=== PATIENT | female | born 1995 | race Caucasian/White ===

== ENCOUNTER 2017-06-14 16:35 | Inpatient (IN) | payer OTHER ==
[~2017-06-14] VITALS: Ht 165.1 cm; Wt 63.0 kg
[2017-06-14] MEDS ORDERED: LORazepam 2 MG TABLET PO ONE (17:30)
[2017-06-14] MEDS ORDERED: SODIUM CHLORIDE 0.9% 1,000 ML IV ONE ×2 (17:30→20:00)
[2017-06-14 18:42] LABS: BASOPHILS # (AUTO) 0.04 K/uL (0.00-0.20); BASOPHILS % (AUTO) 0.5 % (0.0-2.0); EOSINOPHILS # (AUTO) 0.02 K/uL (0.00-0.70); EOSINOPHILS % (AUTO) 0.26 % (1.0-6.0); HEMATOCRIT 34.7 % (36-46); HEMOGLOBIN 11.9 g/dL (12.0-16.0); LYMPHOCYTES # (AUTO) 1.1 K/uL (1.0-4.8); LYMPHOCYTES % (AUTO) 13.1 % (22.0-44.0); MEAN CORPUSCULAR HEMOGLOBIN 30.2 pg (26.0-34.0); MEAN CORPUSCULAR HGB CONC 34.4 G/dL (31.0-37.0); MEAN CORPUSCULAR VOLUME 88 fL (80-100); MONOCYTES # (AUTO) 0.4 K/uL (0.1-1.0); MONOCYTES % (AUTO) 4.8 % (2.0-9.0); NEUTROPHILS % (AUTO) 81.3 % (40.0-70.0); PLATELET COUNT (AUTO) 265 K/uL (150-450); RED BLOOD CELL COUNT(AUTO) 3.96 MIL/uL (4.00-5.20); RED CELL DISTRIBUTION WIDTH 14.1 % (11.5-14.5)
[2017-06-14 18:52] LABS: ANION GAP 11 mmol/L (8-16); CALCIUM, TOTAL 8.6 mg/dL (8.8-10.5); CARBON DIOXIDE 26 mmol/L (22-29); CHLORIDE 102 mmol/L (98-107); GLOMERULAR FILTR. RATE CALC > 60 mL/min (>60); GLUCOSE,RANDOM 104 mg/dL (70-110); POTASSIUM 3.5 mmol/L (3.5-5.1); SODIUM SERUM 139 mmol/L (136-145); UREA NITROGEN, BLOOD 16 mg/dL (7-18)
[2017-06-14 19:26] LABS: ALANINE AMINOTRANSFERASE 41 U/L (12-78); ALBUMIN 3.8 g/dL (3.4-5.0); ALKALINE PHOSPHATASE 56 U/L (46-116); ASPARTATE AMINOTRANSFERASE 104 U/L (15-37); BILIRUBIN,TOTAL 0.6 mg/dL (0.1-1.0); CREATINE KINASE MB 74.2 ng/mL (0-5); TOTAL PROTEIN, SERUM 7.5 g/dL (6.4-8.2)
[2017-06-14 19:31] LABS: CKMB RELATIVE INDEX 2.1 % (0.0-4.0); CREATINE KINASE, TOTAL 3486 U/L (26-192)
[2017-06-14] MEDS ORDERED: ACETAMINOPHEN 325 MG TABLET PO PRN (22:45)
[2017-06-14] MEDS ORDERED: ONDANSETRON HCL 4 MG/2 ML VIAL IVP PRN (22:45)
[2017-06-14] MEDS ORDERED: 0.9% SODIUM CHLORIDE 10 ML SYRINGE IVP PRN (22:45)
[2017-06-15] MEDS ORDERED: OxyCODONE HCL/ACETAMINOPHEN 5-325 MG TABLET PO PRN ×2 (03:45)
[2017-06-15] MEDS ORDERED: ONDANSETRON HCL 4 MG/2 ML VIAL IVP PRN (03:45)
[2017-06-15] MEDS ORDERED: MAGNESIUM HYDROXIDE SUSPENSION 30 ML UDCUP PO PRN (03:45)
[2017-06-15] MEDS ORDERED: ACETAMINOPHEN 325 MG TABLET PO PRN (03:45)
[2017-06-15] MEDS ORDERED: 0.9% SODIUM CHLORIDE 10 ML SYRINGE IVP PRN (03:45)
[2017-06-15] MEDS ORDERED: SODIUM CHLORIDE 0.9% 1,000 ML IV SCH (03:45)
[2017-06-15 08:40] LABS: BASOPHILS # (AUTO) 0.02 K/uL (0.00-0.20); BASOPHILS % (AUTO) 0.4 % (0.0-2.0); EOSINOPHILS # (AUTO) 0.09 K/uL (0.00-0.70); EOSINOPHILS % (AUTO) 1.83 % (1.0-6.0); HEMATOCRIT 35.3 % (36-46); LYMPHOCYTES # (AUTO) 1.2 K/uL (1.0-4.8); LYMPHOCYTES % (AUTO) 24.1 % (22.0-44.0); MEAN CORPUSCULAR HEMOGLOBIN 29.7 pg (26.0-34.0); MEAN CORPUSCULAR HGB CONC 33.9 G/dL (31.0-37.0); MEAN CORPUSCULAR VOLUME 88 fL (80-100); MONOCYTES # (AUTO) 0.2 K/uL (0.1-1.0); MONOCYTES % (AUTO) 4.5 % (2.0-9.0); NEUTROPHILS # (AUTO) 3.4 K/uL (1.8-7.7); NEUTROPHILS % (AUTO) 69.2 % (40.0-70.0); PLATELET COUNT (AUTO) 228 K/uL (150-450); RED BLOOD CELL COUNT(AUTO) 4.03 MIL/uL (4.00-5.20)
[2017-06-15 08:58] LABS: ALANINE AMINOTRANSFERASE 40 U/L (12-78); ALBUMIN 3.4 g/dL (3.4-5.0); ALKALINE PHOSPHATASE 51 U/L (46-116); ANION GAP 10 mmol/L (8-16); ASPARTATE AMINOTRANSFERASE 88 U/L (15-37); BILIRUBIN,TOTAL 0.7 mg/dL (0.1-1.0); CALCIUM, TOTAL 8.4 mg/dL (8.8-10.5); CARBON DIOXIDE 25 mmol/L (22-29); CHLORIDE 104 mmol/L (98-107); CREATININE 0.67 mg/dL (0.60-1.30); GLOMERULAR FILTR. RATE CALC > 60 mL/min (>60); GLUCOSE,RANDOM 117 mg/dL (70-110); POTASSIUM 3.4 mmol/L (3.5-5.1); SODIUM SERUM 139 mmol/L (136-145); TOTAL PROTEIN, SERUM 7.1 g/dL (6.4-8.2); UREA NITROGEN, BLOOD 13 mg/dL (7-18)
[2017-06-15] MEDS ORDERED: PANTOPRAZOLE SODIUM 40 MG/VIAL IVP SCH (09:00)
[2017-06-15] MEDS ORDERED: DOCUSATE SODIUM 100 MG CAPSULE PO SCH (09:00)
[2017-06-15 11:34] VITALS: BP 115/60
== END 2017-06-15 13:00 | disposition left against medical advice (07) | DRG 816 ==
LOC: EMS 16:44 → 5N 06-15 05:24
PROVIDERS: ADMIT Internal Medicine; ATTEND Internal Medicine
PROC: 5A12012 Performance of Cardiac Output, Single, Manual (ICD-10-PCS; principal; 2017-06-15)
DX: T40.1X1A Poisoning by heroin, accidental (unintentional), initial encounter (principal); G92 Toxic encephalopathy; M62.82 Rhabdomyolysis; F11.90 Opioid use, unspecified, uncomplicated; E86.0 Dehydration; Y92.89 Other specified places as the place of occurrence of the external cause
CPT/HCPCS: 93005; 96361; 96374; 99285; C9113; G0480; J7030

== ENCOUNTER 2018-03-01 11:45 | Emergency (ER) | payer OTHER ==
[~2018-03-01] VITALS: Ht 165.1 cm; Wt 75.9 kg
[2018-03-01] MEDS ORDERED: ACETAMINOPHEN 325 MG TABLET PO ONE (12:30)
[2018-03-01 14:29] VITALS: BP 127/76
== END 2018-03-01 15:18 | disposition home or self-care (01) ==
LOC: EMS 11:48
DX: O98.813 Other maternal infectious and parasitic diseases complicating pregnancy, third trimester (principal); J06.9 Acute upper respiratory infection, unspecified; F11.90 Opioid use, unspecified, uncomplicated; Z3A.37 37 weeks gestation of pregnancy
CPT/HCPCS: 87430; 99283

== ENCOUNTER 2021-03-25 22:18 | Emergency (ER) | payer OTHER ==
[~2021-03-25] VITALS: Ht 165.1 cm; Wt 75.0 kg
[2021-03-26] MEDS ORDERED: ACETAMINOPHEN 325 MG TABLET PO PRN (00:30)
[2021-03-26] MEDS ORDERED: 0.9% SODIUM CHLORIDE 10 ML SYRINGE IVP PRN (00:30)
[2021-03-26] MEDS ORDERED: ONDANSETRON HCL 4 MG/2 ML VIAL IVP PRN (00:30)
[2021-03-26] MEDS ORDERED: ACETAMINOPHEN/CODEINE 300-15 MG TABLET PO PRN (00:45)
[2021-03-26] MEDS ORDERED: SODIUM CHLORIDE 0.9% 1,000 ML IV ONE (00:45)
[2021-03-26] MEDS ORDERED: DICYCLOMINE HCL 10 MG CAPSULE PO PRN (00:45)
[2021-03-26] MEDS ORDERED: METOCLOPRAMIDE HCL 5 MG/ML 2 ML VIAL IVP PRN (00:45)
[2021-03-26] MEDS ORDERED: LORazepam 2 MG/ML VIAL IVP PRN (00:45)
[2021-03-26] MEDS ORDERED: LOPERAMIDE HCL 2 MG CAPSULE PO PRN (00:45)
[2021-03-26 00:56] LABS: COVID AG,FIA SOURCE NASOPHARYNGEAL
[2021-03-26 01:04] LABS: BASOPHILS % (AUTO) 0.6 % (0.0-2.0); HEMATOCRIT 34.1 % (36-46); HEMOGLOBIN 11.3 g/dL (12.0-16.0); LYMPHOCYTES # (AUTO) 1.4 K/uL (1.0-4.8); LYMPHOCYTES % (AUTO) 25.4 % (22.0-44.0); MEAN CORPUSCULAR HEMOGLOBIN 26.3 pg (26.0-34.0); MEAN CORPUSCULAR HGB CONC 33.2 G/dL (31.0-37.0); MEAN CORPUSCULAR VOLUME 79 fL (80-100); MONOCYTES # (AUTO) 0.4 K/uL (0.1-1.0); MONOCYTES % (AUTO) 7.7 % (2.0-9.0); NEUTROPHILS # (AUTO) 3.6 K/uL (1.8-7.7); NEUTROPHILS % (AUTO) 64.3 % (40.0-70.0); PLATELET COUNT (AUTO) 317 K/uL (150-450); RED BLOOD CELL COUNT(AUTO) 4.31 MIL/uL (4.00-5.20); RED CELL DISTRIBUTION WIDTH 15.4 % (11.5-14.5)
[2021-03-26 01:15] LABS: INR 1.1 (0.9-1.1); PROTHROMBIN TIME 11.4 SEC (9.4-11.6)
[2021-03-26 01:16] LABS: ANION GAP 8 mmol/L (8-16); CALCIUM, TOTAL 8.8 mg/dL (8.8-10.5); CARBON DIOXIDE 30 mmol/L (22-29); CHLORIDE 102 mmol/L (98-107); CREATININE 0.85 mg/dL (0.60-1.30); GLOMERULAR FILTR. RATE CALC > 60 mL/min (>60); GLUCOSE,RANDOM 89 mg/dL (70-110); POTASSIUM 3.5 mmol/L (3.5-5.1); SODIUM SERUM 140 mmol/L (136-145); UREA NITROGEN, BLOOD 10 mg/dL (7-18)
[2021-03-26 01:36] LABS: SALICYLATE < 2.8 mg/dL (2.8-20.0)
[2021-03-26 01:40] LABS: ALANINE AMINOTRANSFERASE 24 U/L (12-78); ALBUMIN 3.6 g/dL (3.4-5.0); ALKALINE PHOSPHATASE 53 U/L (46-116); ASPARTATE AMINOTRANSFERASE 22 U/L (15-37); BILIRUBIN,TOTAL 0.3 mg/dL (0.1-1.0); CREATINE KINASE, TOTAL ONLY 364 U/L (26-192); HCG,QUANTITATIVE 1 mIU/mL (0-6); TOTAL PROTEIN, SERUM 8.3 g/dL (6.4-8.2)
[2021-03-26 01:41] LABS: ACETAMINOPHEN < 2 mcg/mL (10-30)
[2021-03-26 06:16] VITALS: BP 118/70
[2021-03-26] MEDS ORDERED: TEMAZEPAM 15 MG CAPSULE PO SCH (21:00)
== END 2021-03-26 06:18 | disposition left against medical advice (07) ==
LOC: EMS 22:26
DX: T40.601A Poisoning by unspecified narcotics, accidental (unintentional), initial encounter (principal); G92.9 Unspecified toxic encephalopathy; Z20.822 Contact with and (suspected) exposure to COVID-19; Y92.89 Other specified places as the place of occurrence of the external cause
CPT/HCPCS: 80053; 82550; 84702; 85025; 85610; 85730; 87426; 93005; 99285; G0480; G0481

== ENCOUNTER 2024-08-28 14:05 | Emergency (ER) | payer OTHER ==
[~2024-08-28] VITALS: Ht 167.6 cm; Wt 56.0 kg
[2024-08-28 14:20] VITALS: TEMP 98
[2024-08-28 16:21] LABS: COVID AG,FIA SOURCE NASAL SWAB
[2024-08-28 16:47] LABS: SARS-COV2 (COVID) ANTIGEN,FIA Negative (Negative)
[2024-08-28 17:26] VITALS: BP 124/56; PULSE 97; RESP 17; O2SAT 98
== END 2024-08-28 17:34 | disposition home or self-care (01) ==
LOC: EMS 14:05
DX: Z11.52 Encounter for screening for COVID-19 (principal); F11.90 Opioid use, unspecified, uncomplicated; F19.90 Other psychoactive substance use, unspecified, uncomplicated; Z72.89 Other problems related to lifestyle
CPT/HCPCS: 99283

== ENCOUNTER 2025-02-20 18:45 | Emergency (ER) | payer OTHER ==
[~2025-02-20] VITALS: Ht 165.1 cm; Wt 75.9 kg
[2025-02-20 18:56] VITALS: TEMP 97.7
[2025-02-20] MEDS ORDERED: IBUP-1492 PO (19:47)
[2025-02-20] MEDS ORDERED: AMOX-457 PO (19:47)
[2025-02-20] MEDS: AMOX TR/POT CLAV 875 MG/125 MG TABLET PO ONE (20:06)
[2025-02-20] MEDS: IBUPROFEN 600 MG TABLET PO ONE (20:06)
[2025-02-20 20:07] VITALS: BP 118/74; PULSE 82; RESP 16; O2SAT 97
== END 2025-02-20 20:24 | disposition home or self-care (01) ==
LOC: EMS 18:46
DX: K04.7 Periapical abscess without sinus (principal); K02.9 Dental caries, unspecified; F11.90 Opioid use, unspecified, uncomplicated; F15.90 Other stimulant use, unspecified, uncomplicated
CPT/HCPCS: 93005; 99283